=== PATIENT | male | born 1995 | race Caucasian/White ===

== ENCOUNTER 2021-03-13 20:11 | Emergency (ER) | payer BC ==
--- NOTE | 2021-03-13 20:07 | EDM.PDOC ---
ED HPI GENERAL MEDICAL PROBLEM - General Stated Complaint: AMBULANCE Time Seen by Provider: 03/13/21 20:06 Source of Information: Reports: Patient, RN, RN Notes Reviewed - History of Present Illness INITIAL COMMENTS - FREE TEXT/NARRATIVE: Patient is a 25-year-old male who presents to ER per [facility] with complaint of right ankle pain. Patient states he got his cleat caught in the fence, rolling his ankle. Patient denies any past medical history, denies any previous injury to the ankle. Patient states he has had 1 beer this evening. Rates pain /10. Was given fentanyl in the ambulance in route. Onset: Today, Sudden Duration: Constant Location: Reports: Lower Extremity, Right Quality: Reports: Sharp, Throbbing Severity: Moderate Improves with: Reports: None, Immobilization Worsens with: Reports: None Right Ankle Pain Score (Numeric/FACES): 6 - Related Data Allergies Allergy/AdvReac Type Severity Reaction Status Date / Time No Known Allergies Allergy Verified 03/13/21 20:12 Home Meds: Home Meds . [No Known Home Meds] 03/13/21 [History] Past Medical History Neurological History: Reports: Headaches, Chronic Social & Family History - Family History Family Medical History: No Pertinent Family History Review of Systems - Review of Systems Review Of Systems: Comprehensive ROS is negative, except as noted in HPI. ED EXAM, GENERAL - Physical Exam Exam: See Below Exam Limited By: No Limitations General Appearance: Alert, WD/WN, Mild Distress Eye Exam: Bilateral Eye: EOMI, Normal Inspection Ears: Normal External Exam, Hearing Grossly Normal Nose: Normal Inspection Throat/Mouth: Normal Inspection, Normal Voice, No Airway Compromise Head: Atraumatic, Normocephalic Neck: Normal Inspection, Supple, Non-Tender, Full Range of Motion Respiratory/Chest: No Respiratory Distress, Lungs Clear, Normal Breath Sounds, No Accessory Muscle Use, Chest Non-Tender Cardiovascular: Normal Peripheral Pulses, Regular Rate, Rhythm, No Edema, No Gallop, No JVD, No Murmur, No Rub Peripheral Pulses: 2+: Radial (L), Radial (R), Dorsalis Pedis (L) GI/Abdominal: Normal Bowel Sounds, Soft, Non-Tender (Male) Exam: Deferred Rectal (Males) Exam: Deferred Back Exam: Normal Inspection, Full Range of Motion, NT Extremities: No Pedal Edema, Normal Capillary Refill, Joint Swelling (right an kle), Leg Pain (right ankle), Limited Range of Motion (right ankle) Neurological: Alert, Oriented, Normal Cognition, No Motor/Sensory Deficits Psychiatric: Normal Affect, Normal Mood Skin Exam: Warm, Dry, Intact, Normal Color, No Rash Lymphatic: No Adenopathy Course - Vital Signs Last Recorded V/S: Last Vital Signs Temp 96.8 F L 03/13/21 20:17 Pulse 93 03/13/21 20:17 Resp 16 03/13/21 20:17 BP 141/93 H 03/13/21 20:17 Pulse Ox 100 03/13/21 20:17 - Orders/Labs/Meds Meds: Medications Discontinued Medications Generic Name Dose Route Start Last Admin Trade Name Saranya PRN Reason Stop Dose Admin Ketorolac Tromethamine 30 mg 03/13/21 20:22 03/13/21 20:26 Ketorolac 30 Mg/Ml Sdv IVPUSH 03/13/21 20:23 30 mg ONETIME ONE Administration Ondansetron HCl 4 mg 03/13/21 20:38 03/13/21 20:43 Ondansetron 4 Mg/2 Ml Sdv IV 03/13/21 20:39 4 mg ONETIME ONE Administration - Radiology Interpretation Free Text/Narrative:: Right ankle xray: PROCEDURE INFORMATION: Exam: XR Right Ankle Exam date and time: 03/13/2021 8:16 PM Age: 25 years old Clinical indication: Other: Ankle injury, swelling, deformity TECHNIQUE: Imaging protocol: XR Right ankle. Views: 3 or more views. COMPARISON: No relevant prior studies available. FINDINGS: Bones/joints: Normal. Soft tissues: Soft tissue swelling at the level of the lateral malleolus. IMPRESSION: Soft tissue swelling at the level of the lateral malleolus. No fracture. Thank you for allowing us to participate in the care of your patient. Dictated and Authenticated by: Brian Dave MD 03/13/2021 9:09 PM Central Time ([place] & [place]) See rad report Departure - Departure Time of Disposition: 21:22 Disposition: Home, Self-Care 01 Condition: Good Clinical Impression: Ankle sprain Qualifiers: Encounter type: initial encounter Involved ligament of ankle: unspecified ligament Laterality: right Qualified Code(s): S93.401A - Sprain of unspecified ligament of right ankle, initial encounter - Discharge Information *PRESCRIPTION DRUG MONITORING PROGRAM REVIEWED*: No *COPY OF PRESCRIPTION DRUG MONITORING REPORT IN PATIENT SYMONE: No Instructions: Crutch Use, Adult, [id number], Ankle Sprain, [id number], Cast or Splint Care, Adult, [id number], Muscle Strain, [id number] Forms: ED Department Discharge Additional Instructions: Wear splint when up and around for the next 2 weeks Use crutches as tolerated for the next 2 weeks Rest, Elevate, Ice several times daily May use Tylenol and/or Ibuprofen as directed for pain Follow up with your primary care facility in the clinic in 2 weeks if no improvement for re-xray Return to the ER with any worsening of symptoms Sepsis Event Note (ED) - Focused Exam Vital Signs: Vital Signs Temp Pulse Resp BP Pulse Ox 03/13/21 20:17 96.8 F L 93 16 141/93 H 100
[2021-03-13] MEDS ORDERED: Ketorolac 30 MG/ML SDV IVPUSH ONE (20:22)
[2021-03-13] MEDS ORDERED: Ondansetron 4 MG/2 ML SDV IV ONE (20:38)
--- NOTE | 2021-03-13 21:10 | CR ---
PROCEDURE INFORMATION: Exam: XR Right Ankle Exam date and time: 03/13/2021 8:16 PM Age: 25 years old Clinical indication: Other: Ankle injury, swelling, deformity TECHNIQUE: Imaging protocol: XR Right ankle. Views: 3 or more views. COMPARISON: No relevant prior studies available. FINDINGS: Bones/joints: Normal. Soft tissues: Soft tissue swelling at the level of the lateral malleolus. IMPRESSION: Soft tissue swelling at the level of the lateral malleolus. No fracture.
== END 2021-03-13 22:22 | disposition home or self-care (01) ==
LOC: DL.ED 20:11
DX: S93.401A Sprain of unspecified ligament of right ankle, initial encounter (principal); X50.1XXA Overexertion from prolonged static or awkward postures, initial encounter
CPT/HCPCS: 73610; 96374; 96375; 99284; J1885; J2405; 99282